=== PATIENT | female | born 1980 | race Caucasian/White ===

== ENCOUNTER 2020-05-02 08:00 | Outpatient (CLI) | payer MEDICAID ==
[2020-05-02 16:23] LABS: MUDS CUTOFF CONCENTRATIONS CUTOFF CONC BELOW:
[2020-05-02 16:59] LABS: BILIRUBIN,URINE NEGATIVE (NEGATIVE); GLUCOSE, URINE (UA) NEGATIVE (NEGATIVE); KETONES,URINE (UA) NEGATIVE (NEGATIVE); LEUKOCYTE ESTERASE, URINE NEGATIVE (NEGATIVE); NITRITE,URINE NEGATIVE (NEGATIVE); OCCULT BLOOD,URINE NEGATIVE (NEGATIVE); PROTEIN,URINE NEGATIVE (NEGATIVE); UROBILINOGEN,URINE 0.2 (NORMAL) E.U./dL (NORMAL)
[2020-05-02 17:21] LABS: BACTERIA,URINE None Seen /HPF (None Seen); CLARITY,URINE CLEAR (CLEAR); RBC,URINE None Seen /HPF (0-5); SQUAMOUS EPITHELIAL CELL,UR NONE SEEN (<= Few)
[2020-05-02 17:36] LABS: AMPHETAMINE SCREEN,URINE NEGATIVE (NEGATIVE); BENZODIAZEPINES SCREEN, URINE NEGATIVE (NEGATIVE); COCAINE SCREEN URINE NEGATIVE (NEGATIVE); METHADONE SCREEN, URINE NEGATIVE (NEGATIVE); METHAMPHETAMINES SCREEN, URINE NEGATIVE (NEGATIVE); OPIATE SCREEN, URINE NEGATIVE (NEGATIVE); OXYCODONE SCREEN, URINE NEGATIVE (NEGATIVE); PROPOXYPHENE SCREEN, URINE NEGATIVE (NEGATIVE); TRICYCLIC ANTIDEPRESSANT,URINE NEGATIVE (NEGATIVE)
== END 2020-05-02 23:59 | disposition home or self-care (01) ==
LOC: LAB.R 08:00
PROVIDERS: ATTEND Nurse Practitioner Obstetrics & Gynecology
DX: Z32.01 Encounter for pregnancy test, result positive (principal)
CPT/HCPCS: 80306; 81001; 87086

== ENCOUNTER 2020-05-18 14:38 | Outpatient (CLI) | payer MEDICAID ==
--- NOTE | 2020-05-18 16:22 | Ultrasound Report ---
PROCEDURE: OB First Trimester w/TV INDICATIONS: VAGINAL BLEEDING, 1ST TRIMESTER` TECHNIQUE: Both transabdominal and transvaginal scanning. COMPARISON: None. FINDINGS: The clinical history indicates positive test approximately one month ago. Vaginal bleeding since yesterday. Prior history of spontaneous . Currently the scanning shows a small 5 mm irr egular empty presumed gestational sac, with no evidence of intrauterine gestation. A corpus luteum cy st is not seen at the ovaries. IMPRESSION: Presumed spontaneous , correlation with quantitative beta hCG may be warranted. Currently a v iable intrauterine gestation is not found. Reviewed by: Usama Biswas MD on 05/18/2020 4:21 PM PDT Approved by: Usama Biswas MD on 05/18/2020 4:21 PM PDT Station ID: [id number]
== END 2020-05-18 14:39 | disposition home or self-care (01) ==
LOC: DI 14:38
PROVIDERS: ATTEND Nurse Practitioner Obstetrics & Gynecology
DX: O46.91 Antepartum hemorrhage, unspecified, first trimester (principal); Z32.01 Encounter for pregnancy test, result positive
CPT/HCPCS: 76801; 76817

== ENCOUNTER 2020-08-18 16:05 | Outpatient (CLI) | payer OTHER ==
--- NOTE | 2020-08-18 16:42 | XRAY Report ---
PROCEDURE: Chest 2 View X-Ray INDICATIONS: SHORTNESS OF BREATH TECHNIQUE: 2 view(s) of the chest. COMPARISON: None. FINDINGS: Surgical changes and devices: None. Lungs and pleura: No pleural effusions or pneumothorax. Lungs are clear. Mediastinum: Mediastinal contours are normal. Heart size is normal. Bones and chest wall: No suspicious bony abnormalities. Soft tissues appear unremarkable. IMPRESSION: Normal chest plain films. Reviewed by: Dov Dutta MD on 08/18/2020 3:41 PM [facility] Approved by: Dov Dutta MD on 08/18/2020 3:41 PM [facility] Station ID: [id number]
== END 2020-08-18 23:59 | disposition home or self-care (01) ==
LOC: DI.S 16:05
PROVIDERS: ATTEND Physician Assistant Medical
DX: R06.02 Shortness of breath (principal)

== ENCOUNTER 2021-05-09 15:40 | Outpatient (CLI) | payer OTHER ==
[2021-05-09 16:16] LABS: HCT - HEMATOCRIT 35.6 % (37.0-47.0); MEAN CORPUSCULAR HEMOGLOBIN 33.7 pg (27.0-31.0); MEAN CORPUSCULAR HGB CONC 33.7 g/dL (32.0-36.0); MEAN PLATELET VOLUME 11.3 fL (7.9-10.8); RED BLOOD COUNT 3.56 10^6/uL (4.20-5.40); RED CELL DISTRIBUTION WIDTH 14.1 % (12.0-15.0); WHITE BLOOD COUNT 9.1 x10^3/uL (4.8-10.8)
[2021-05-09 16:30] LABS: % IRON SATURATION 20 % (20-50); IRON 93 ug/dL (28-170); TOTAL IRON BINDING CAPACITY 461 ug/dL (250-450); TRANSFERRIN 329 mg/dL (192-382)
[2021-05-09 16:43] LABS: THYROID STIMULATING HORMONE 1.82 uIU/mL (0.34-5.60)
[2021-05-09 16:49] LABS: FERRITIN 30.7 ng/mL (11.0-306.8)
== END 2021-05-09 15:41 | disposition home or self-care (01) ==
LOC: LAB 15:40
PROVIDERS: ATTEND Obstetrics & Gynecology
DX: O99.019 Anemia complicating pregnancy, unspecified trimester (principal); O99.280 Endocrine, nutritional and metabolic diseases complicating pregnancy, unspecified trimester; O99.891 Other specified diseases and conditions complicating pregnancy; E55.9 Vitamin D deficiency, unspecified; R53.83 Other fatigue
CPT/HCPCS: 36415; 82306; 82728; 83540; 84443; 84466; 85027

== ENCOUNTER 2021-05-16 08:00 | Outpatient (CLI) | payer OTHER | END 2021-05-16 23:59 | disposition home or self-care (01) | LOC: LAB.WC 08:00 | PROVIDERS: ATTEND Obstetrics & Gynecology | DX: O09.90 Supervision of high risk pregnancy, unspecified, unspecified trimester (principal); Z36.85 Encounter for antenatal screening for Streptococcus B | CPT/HCPCS: 87797 ==

== ENCOUNTER 2021-05-22 11:24 | Emergency (ER) | payer OTHER ==
[2021-05-22 12:10] LABS: BASOPHILS % (AUTO) 0.2 %; EOSINOPHILS # (AUTO) 0.1 10^3/uL (0.0-0.7); EOSINOPHILS % (AUTO) 0.7 %; HCT - HEMATOCRIT 36.6 % (37.0-47.0); LYMPHOCYTES # (AUTO) 1.2 10^3/uL (1.5-3.5); LYMPHOCYTES % (AUTO) 12.6 %; MEAN CORPUSCULAR HEMOGLOBIN 33.1 pg (27.0-31.0); MEAN CORPUSCULAR HGB CONC 32.8 g/dL (32.0-36.0); MEAN CORPUSCULAR VOLUME 101.1 fL (81.0-99.0); MEAN PLATELET VOLUME 11.6 fL (7.9-10.8); MONOCYTES # (AUTO) 0.9 10^3/uL (0.0-1.0); MONOCYTES % (AUTO) 8.9 %; NEUTROPHILS # (AUTO) 7.3 10^3/uL (1.5-6.6); PLT - PLATELET COUNT 167 10^3/uL (130-450); RED BLOOD COUNT 3.62 10^6/uL (4.20-5.40); RED CELL DISTRIBUTION WIDTH 13.8 % (12.0-15.0); WHITE BLOOD COUNT 9.5 x10^3/uL (4.8-10.8)
[2021-05-22 12:27] LABS: ALBUMIN 3.2 g/dL (3.2-5.5); ALBUMIN/GLOBULIN RATIO 1.1 (1.0-2.2); BILIRUBIN,TOTAL 0.5 mg/dL (0.2-1.0); CALCIUM 8.8 mg/dL (8.5-10.3); CREATININE 0.5 mg/dL (0.4-1.0); POTASSIUM 3.9 mmol/L (3.5-5.0); TOTAL PROTEIN 6.2 g/dL (6.7-8.2)
--- NOTE | 2021-05-22 12:51 | PROCEDURE REPORT ---
- HPI Diagnosis/Indication for NST: Other (ED evaluation for chest pain) Vital Signs Temperature 98 F 05/22/21 11:26 Heart Rate 122 H 05/22/21 11:26 Respiratory Rate 16 05/22/21 11:26 Blood Pressure 117/82 H 05/22/21 11:26 O2 Saturation 99 05/22/21 11:26 Temperature 98 F 05/22/21 11:26 Heart Rate 88 05/22/21 12:30 Respiratory Rate 18 05/22/21 12:30 Blood Pressure 125/81 H 05/22/21 12:30 O2 Saturation 95 05/22/21 12:30 40-year-old -0-2-1 at 37 weeks 3 days gestation - NST Procedure NST Performed 05/22/2021 NST Read 05/22/2021 Diagnosis 37 weeks gestation Chest pain FHT: 130 beats per minute baseline, moderate variability, accelerations present, no decelerations. [place]: No significant contractions. - Results and Plan Findings/Impression: Reactive NST.
[2021-05-22 14:47] VITALS: BP 112/75
--- NOTE | 2021-05-22 14:49 | ED Physician Documentation ---
History of Present Illness - Stated complaint Stated Complaint: RACING HEART - Chief complaint Chief Complaint: Cardiac - History obtained from History obtained from: Patient - Additonal information Additional information: Patient comes emergency department chief complaint of episodes of racing heart. She states she is 37 weeks , and that the episodes have been happening for the past few weeks, mainly in the morning when she first gets up. Sx subside after a couple of hours. She states that it helps to sit or lay down. She denies syncope or near syncope, but states she has just felt tired. No chest pain or shortness or breath. No lower extremity swelling or pain. No DVT/PE hx. Pt has had an uneventful so far. No vaginal bleeding or d/c. She has been drinking plenty of water, and has not been sick. She is receiving regular care from Dr. Mcadams, who sent pt here after finding her HR to be 130 in the office. Pt states she is not currently feeling as though her heart is racing. Pt has been feeling baby move. No h/o dysrhythmia. No other complaints at this time. Review of Systems Ten Systems: 10 systems reviewed and negative Constitutional: reports: Reviewed and negative Eyes: reports: Reviewed and negative Ears: reports: Reviewed and negative Nose: reports: Reviewed and negative Throat: reports: Reviewed and negative Cardiac: reports: Palpitations Respiratory: reports: Reviewed and negative GI: reports: Reviewed and negative : reports: Reviewed and negative Skin: reports: Reviewed and negative Musculoskeletal: reports: Reviewed and negative Neurologic: reports: Reviewed and negative Psychiatric: reports: Reviewed and negative Endocrine: reports: Reviewed and negative Immunocompromised: reports: Reviewed and negative PD PAST MEDICAL HISTORY - Present Medications Home Medications: Ambulatory Orders Medication Instructions Recorded Confirmed No Known Home Medications 05/22/21 05/22/21 - Allergies Allergies/Adverse Reactions: Allergies Allergy/AdvReac Type Severity Reaction Status Date / Time No Known Drug Allergies Allergy Verified 05/22/21 11:42 - Social History Does the pt smoke?: No Smoking Status: Never smoker PD ED PE NORMAL - Vitals Vital signs reviewed: Yes - General General: Alert and oriented X 3, No acute distress, Well developed/nourished - HEENT HEENT: Atraumatic, PERRL, EOMI, Moist mucous membranes - Neck Neck: Supple, no meningeal sign - Cardiac Cardiac: RRR, No murmur, Strong equal pulses - Respiratory Respiratory: No respiratory distress, Clear bilaterally - Abdomen Abdomen: Soft, Non tender, Other (Gravid, consistent with late .) - Derm Derm: Normal color, Warm and dry, No rash - Extremities Extremities: No deformity, No edema, No calf tenderness / cord - Neuro Neuro: Alert and oriented X 3, land title examiner 2-12 intact, Normal speech, Other (Grossly intact) - Psych Psych: Normal mood, Normal affect Results - Vitals Vitals: Oxygen O2 Source Room air - EKG (time done) 1136 Rate: Rate (enter#) (120) Rhythm: Sinus tachycardia [place]: Normal Intervals: Normal SC QRS: LVH (borderline) Ischemia: Normal ST segments Compare to prior EKG: Old EKG unavailable - Labs Labs: Laboratory Tests 05/22/21 05/22/21 05/22/21 12:01 12:01 12:01 WBC 9.5 RBC 3.62 L Hgb 12.0 Hct 36.6 L MCV 101.1 H MCH 33.1 H MCHC 32.8 RDW 13.8 Plt Count 167 MPV 11.6 H Neut # (Auto) 7.3 H Lymph # (Auto) 1.2 L [place] # (Auto) 0.9 Eos # (Auto) 0.1 Baso # (Auto) 0.0 Absolute Nucleated RBC 0.00 Nucleated RBC % 0.0 Sodium 130 L Potassium 3.9 Chloride 103 Carbon Dioxide 20 L Anion Gap 7.0 BUN 5 L Creatinine 0.5 Estimated GFR (MDRD) 137 Glucose 103 H Calcium 8.8 Total Bilirubin 0.5 AST 16 ALT 12 Alkaline Phosphatase 100 Troponin I High Sens 4.5 Total Protein 6.2 L Albumin 3.2 Globulin 3.0 Albumin/Globulin Ratio 1.1 Lipase 32 PD MEDICAL DECISION MAKING - ED course Complexity details: reviewed results, re-evaluated patient, considered differential, d/w patient ED course: Pt was very well-appearing in the ED, and was in NSR. Her EKG and labs were unremarkable, other than tachycardia at 120 bpm on EKG, which resolved quickly after settling in to the ED. I d/w pt that even if she feels she is drinking enough water, she should sit down rest and have a cup of water when she feels tired and as though her HR is up in the morning. Most likely, she is a little volume contracted in the morning, and hydrating extra at that time would help. The pt's signs and sx are not indicative of a clot, though this has certainly been considered. She has an appt with Dr. Mcadams 1 week from today, and a scheduled in 2 weeks. We have discussed that if the sx don't resolve within the first couple of weeks after giving , she may want to consider seeing her PCP and discussing an event monitor to see what is going on. Departure - Departure Disposition: 01 Home, Self Care Clinical Impression: Palpitations with regular cardiac rhythm Condition: Stable Instructions: ED Palpitations Comments: Your labs all look great, and your heart rate has been regular and normal here in the emergency department. It is not clear exactly why your heart is racing, but given the physical changes during late , it may just be related to this. Please be sure you are drinking a lot of water, preferably at least 10 cups/day. If you feel as though your heart is racing and you feel fatigued, just sit or lay down for a few minutes and drink a glass of water. I do not feel that a cardiology referral is indicated at this point. Your heart rhythm is completely normal and you Do not have any evidence of a primary cardiac disorder. Additionally, there is no evidence of a blood clot at this time. You may follow-up with Dr. Mcadams as planned, and continue your plans for your scheduled on the , as long as Dr. Mcadams still feels this is a good idea. You may also talk to your doctor about wearing an event monitor if you continue to have the episodes of heart racing. If you develop severe chest pain or shortness of breath, or if you faint, please return to the emergency department. You should also return if your heart rate goes up above 120 bpm and will not come down within an hour. Discharge Date/Time: 05/22/21 14:55
== END 2021-05-22 14:55 | disposition home or self-care (01) ==
LOC: ED 11:24
DX: O99.891 Other specified diseases and conditions complicating pregnancy (principal); R00.0 Tachycardia, unspecified; Z3A.37 37 weeks gestation of pregnancy
CPT/HCPCS: 36415; 80053; 83690; 84484; 85025; 93005; 99282; 99284

== ENCOUNTER 2021-05-30 14:58 | Outpatient (CLI) | payer OTHER ==
[2021-06-03 16:52] LABS: BASOPHILS % (AUTO) 0.3 %; EOSINOPHILS # (AUTO) 0.1 10^3/uL (0.0-0.7); EOSINOPHILS % (AUTO) 0.6 %; HCT - HEMATOCRIT 36.4 % (37.0-47.0); HGB - HEMOGLOBIN 12.1 g/dL (12.0-16.0); LYMPHOCYTES # (AUTO) 1.5 10^3/uL (1.5-3.5); LYMPHOCYTES % (AUTO) 17.4 %; MEAN CORPUSCULAR HEMOGLOBIN 33.3 pg (27.0-31.0); MEAN CORPUSCULAR HGB CONC 33.2 g/dL (32.0-36.0); MEAN CORPUSCULAR VOLUME 100.3 fL (81.0-99.0); MEAN PLATELET VOLUME 12.2 fL (7.9-10.8); MONOCYTES # (AUTO) 0.8 10^3/uL (0.0-1.0); MONOCYTES % (AUTO) 8.5 %; NEUTROPHILS # (AUTO) 6.4 10^3/uL (1.5-6.6); NEUTROPHILS % (AUTO) 72.7 %; PLT - PLATELET COUNT 174 10^3/uL (130-450); RED BLOOD COUNT 3.63 10^6/uL (4.20-5.40); RED CELL DISTRIBUTION WIDTH 13.7 % (12.0-15.0); WHITE BLOOD COUNT 8.8 x10^3/uL (4.8-10.8)
== END 2021-05-30 14:59 | disposition home or self-care (01) ==
LOC: LAB 14:58
PROVIDERS: ATTEND Obstetrics & Gynecology
DX: Z01.812 Encounter for preprocedural laboratory examination (principal); O34.211 Maternal care for low transverse scar from previous cesarean delivery; Z20.822 Contact with and (suspected) exposure to COVID-19
CPT/HCPCS: 36415; 85025; 86850; 86900; 86901

== ENCOUNTER 2021-06-03 15:01 | Outpatient (CLI) | payer OTHER | END 2021-06-03 16:00 | disposition home or self-care (01) | LOC: WFO 15:01 → FBP 15:04 → WFO 16:00 | PROVIDERS: ATTEND Obstetrics & Gynecology | DX: Z53.9 Procedure and treatment not carried out, unspecified reason (principal) ==

== ENCOUNTER 2021-06-03 16:07 | Outpatient (CLI) | payer OTHER | END 2021-06-03 16:08 | disposition home or self-care (01) | LOC: LAB 16:07 | PROVIDERS: ATTEND Obstetrics & Gynecology | DX: Z53.9 Procedure and treatment not carried out, unspecified reason (principal) ==

== ENCOUNTER 2021-06-04 08:30 | Inpatient (IN) | payer OTHER ==
--- NOTE | 2021-06-03 16:05 | ANESTHESIA ---
Pre-Anesthesia VS, & Labs - Diagnosis repeat C/S - Procedure Section Height: 5 ft 7 in - Is Patient ?: Yes Home Medications and Allergies No Known Home Medications 05/22/21 Allergies/Adverse Reactions: Allergies Allergy/AdvReac Type Severity Reaction Status Date / Time No Known Drug Allergies Allergy Verified 05/22/21 11:42 Anes History & Medical History - Anesthetic History Anesthesia Complications: reports: No previous complications - Medical History Cardiovascular: reports: Arrhythmia (was seen in ER recently HR 120's, was felt to be dehydration vs changes in late . EKG showed Sinus Tach. See Dr. Aguilera's note.) Pulmonary: reports: None Gastrointestinal: reports: None Urinary: reports: None Endocrine/Autoimmune: reports: None Blood Disorders: reports: None Skin: reports: None Smoking Status: Never smoker History of Cancer?: No Exam General: Alert, Oriented x3, Cooperative Dental: WNL Mouth Opening: Greater than 4 Fingerbreadths Neck Mobility: Normal Mallampati classification: I Thyromental Distance: greater than 6 cm Respiratory: Lungs clear Cardiovascular: Regular rate Plan Anesthesia Type: Spinal, Transverse Abdominis Plane (TAP) Block (discussed if d esires) Consent for Procedure(s) Verified and Reviewed: No Code Status: Attempt Resuscitation ASA classification: 2-Mild systemic disease Is this case an emergency?: No
[2021-06-06] MEDS ORDERED: LIDOCAINE 2%-EPI 1:100000 20 ML MDV ONE (07:28)
[2021-06-06] MEDS ORDERED: BUPIVACAINE 0.25% PF 30 ML VIAL ONE (07:28)
[2021-06-06] MEDS ORDERED: LACTATED RINGERS 1,000 ML IV SCH ×4 (09:00→19:00)
[2021-06-06] MEDS ORDERED: ONDANSETRON 4 MG/2 ML VIAL IVP PRN ×2 (09:02→09:06)
[2021-06-06] MEDS ORDERED: NALOXONE 0.4 MG/ML VIAL IVP PRN (09:06)
[2021-06-06] MEDS ORDERED: METOCLOPRAMIDE 10 MG/2 ML VIAL IVP PRN (09:06)
[2021-06-06] MEDS ORDERED: ATROPINE ABBOJECT 1 MG/10 ML SYRINGE IVP PRN (09:06)
[2021-06-06] MEDS ORDERED: ePHEDrine 50 MG/ML VIAL IVP PRN (09:06)
[2021-06-06] MEDS ORDERED: HYDROmorphone 0.5 MG/0.5 ML SYRINGE IVP PRN (09:06)
[2021-06-06] MEDS ORDERED: MORPHINE 2 MG/ML CARPUJECT IVP PRN (09:06)
[2021-06-06] MEDS ORDERED: fentaNYL 100 MCG/2 ML VIAL IVP PRN (09:06)
--- NOTE | 2021-06-06 09:06 | ANESTHESIA ---
Pre-Anesthesia VS, & Labs - Diagnosis repeat C/S - Procedure Section Vital Signs: Temp Pulse Resp BP Pulse Ox 106 H 17 112/80 100 06/06/21 08:10 06/06/21 08:10 06/06/21 08:10 06/06/21 08:10 Height: 5 ft 7 in - NPO >8 hours - Is Patient ?: Yes Home Medications and Allergies Active Medications Cefazolin Sodium 2 gm/ Sodium (Chloride) 100 mls @ 200 mls/hr IV ONCE ONE Stop: 06/06/21 09:59 Lactated Ringer's (Lr) 1,000 mls @ 125 mls/hr IV .Q8H DAYA Ondansetron HCl (Ondansetron 4 Mg/2 Ml Vial) 4 mg IVP Q6HR PRN PRN Reason: Nausea / Vomiting No Known Home Medications 05/22/21 Allergies/Adverse Reactions: Allergies Allergy/AdvReac Type Severity Reaction Status Date / Time No Known Drug Allergies Allergy Verified 05/22/21 11:42 Anes History & Medical History - Medical History Cardiovascular: reports: Arrhythmia Pulmonary: reports: None, Asthma Gastrointestinal: reports: None Urinary: reports: None Endocrine/Autoimmune: reports: None Blood Disorders: reports: None Skin: reports: None Smoking Status: Never smoker History of Cancer?: No - Surgical History Gynecologic: reports: section Exam General: Alert Dental: WNL Mallampati classification: II Thyromental Distance: greater than 6 cm Respiratory: Lungs clear Cardiovascular: Regular rate, Normal S1, Normal S2 Plan Anesthesia Type: Spinal, Transverse Abdominis Plane (TAP) Block Consent for Procedure(s) Verified and Reviewed: Yes Code Status: Attempt Resuscitation ASA classification: 2-Mild systemic disease Is this case an emergency?: No
[2021-06-06] MEDS ORDERED: CITRIC ACID/SODIUM CITRATE 15 ML UDC PO ONE (09:27)
[2021-06-06] MEDS ORDERED: ceFAZolin 2 GM in SODIUM CHLORIDE 0.9% 100ML 100 ML IV ONE (09:30)
--- NOTE | 2021-06-06 09:46 | HISTORY & PHYSICAL EXAMINATION ---
History of Present Illness - History of Present Illness HPI Comment/Other: ID: Patient is a 41 yo who presents today for repeat LTCS apt at 39+4 wga HPI: Patient is a 41 year-old G4, P1 at 35+4 weeks estimated gestational age with history of prior . Transferred from [facility] at 35 wga for management of her and delivery due to history of prior has generally been uncomplicated. FAS originally showed EIF (ES. She is seeing [facility]. Genetic counseling. Follow-up was recommended and was unremarkable. Patient has not yet had a Tdap vaccine and has not yet had Covid vaccine declines influenza. 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 No other concerns. Endorses FM. Denies LOF/VB/CTX. PNC: LMP: 09/02/2020 GLORIA by LMP:06/09/2021 Initial U/S: NONE DOCUMENTED (REQUESTED FROM [facility]) FINAL GLORIA: O pos/Rubella immune VZV: NOT DOCUMENTED Genetic testing: [place] negative (male fetus) FAS: Posterior placenta, no previa. TOMMY WNL. 3VC. Size c/w dating (EFW 62%). Echogenic intracardiac focus in the left ventricle. Left choroid plexus is heterogenous, likely small choroid plexus cysts. Suboptimal v isualization of 4 chamber heart, cardiac outflow tracts and ductal arch. 02/13 F/U Genetic counseling w/ultrasound in house: "Left ventricular EIF visualized. Reported left choroid plexus cyst NOT visualized." Low lying placenta is 1cm from the internal os; follow-up ultrasound in 4w is suggested. Follow-up? Glucola: 77 Influenza: declines TDAP: Declines Covid vaccine: Declined GBS @36w: collected 05/15 at 36w3d POSITIVE HSV: endorses. Rx for valacyclovir submitted. Breast pump Rx- 05/09 MOD: Scheduled repeat section 06/04/2021 pp contraception: pap: 12/2017 self reported Past Medical History: Asthma Anxiety Disorder MVP Heart Murmur Past Surgical History: section 2017 FH: Asthma for Father - Entered On: 05/02/2020 Stroke/CVA for Maternal Grandmother - Entered On: 05/02/2020 Family HistoryOther Cancer for Maternal Grandfather - Entered On: 05/02/2020 Family History of Other Medical Problems for Paternal Grandmother, [place] in her 70s - Entered On: 05/02/2020 SOC HX: Denies GARY ROS: As per HPI, otherwise remaining systems are negative. PE: VS: 98.2 106 112/80 17 100 GEN: NAD HEENT: NCAT CV: RR RESP: nl effort ABD: gravid, S&NT/ND EXT: WWP EFM 135 mod apolinar 15x15 accels no decels TOCO Quiet A/P: 41 yo at 39+4 wga here for repeat CS FWB: well grown, GBS positive, vertex at 36 wga -Cat I tracing Preop: Reviewed risks/benefits/alternatives to and BTL Risks include, but are not limited to, bleeding, infection, damage to neatby tissue and organs. On average, EBL of up to 1 liter is considered within normal limits for CS. Risks of blood transfusion include infection Risk of HIV 1/2million nationwide Risk of Hepatitis 1/1 million Risks of transfusion reaction Infection risk moderate given clean/contaminated nature of procedure and IV antibiotics will be given. Damage to nearby tissue and organs including bladder, bowel, ureters, blood vessels, nerves, and fetus Damage may be noted intra-op and may be delayed until after the procedure is complete Reviewed management of complications and efforts to avoid such outcomes but reviewed that they may occur despite our best efforts Confirmed that sterlization is desired Patient understands that tubal ligation is an irreversible process that will result in future infertility Written informed consent obtained. 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
[2021-06-06 10:01] LABS: BASOPHILS % (AUTO) 0.2 %; EOSINOPHILS % (AUTO) 0.2 %; HCT - HEMATOCRIT 37.9 % (37.0-47.0); HGB - HEMOGLOBIN 12.6 g/dL (12.0-16.0); LYMPHOCYTES # (AUTO) 0.9 10^3/uL (1.5-3.5); MEAN CORPUSCULAR HEMOGLOBIN 33.2 pg (27.0-31.0); MEAN CORPUSCULAR HGB CONC 33.2 g/dL (32.0-36.0); MEAN PLATELET VOLUME 12.5 fL (7.9-10.8); MONOCYTES # (AUTO) 0.6 10^3/uL (0.0-1.0); MONOCYTES % (AUTO) 6.6 %; NEUTROPHILS # (AUTO) 6.9 10^3/uL (1.5-6.6); NEUTROPHILS % (AUTO) 81.6 %; PLT - PLATELET COUNT 168 10^3/uL (130-450); RED BLOOD COUNT 3.79 10^6/uL (4.20-5.40); RED CELL DISTRIBUTION WIDTH 13.8 % (12.0-15.0); WHITE BLOOD COUNT 8.5 x10^3/uL (4.8-10.8)
[2021-06-06] MEDS ORDERED: fentaNYL 100 MCG/2 ML VIAL ONE (13:08)
[2021-06-06] MEDS ORDERED: OXYTOCIN 10 UNIT/ML VIAL ONE (13:09)
[2021-06-06] MEDS ORDERED: ONDANSETRON 4 MG/2 ML VIAL ONE ×2 (13:21→13:45)
[2021-06-06] MEDS ORDERED: SODIUM CHLORIDE 0.9% 10 ML VIAL IVP ONE (14:03)
[2021-06-06] MEDS ORDERED: ROPIVACAINE 0.5% PF 20 ML AMPULE ONE (14:03)
[2021-06-06] MEDS ORDERED: LACTATED RINGERS 1,000 ML IV ONE ×2 (15:19→15:56)
[2021-06-06] MEDS ORDERED: KETOROLAC 30 MG/ML VIAL IVP PRN (15:40)
[2021-06-06] MEDS ORDERED: ACETAMINOPHEN 1,000 MG/100 ML 100 ML IV ONE (15:41)
--- NOTE | 2021-06-06 15:43 | ANESTHESIA POST OP EVALUATION ---
Anesthesia Post Eval - Post Anesthesia Eval Vitals: Last Vital Signs Temp 37.5 C 06/06/21 15:20 Pulse 64 06/06/21 15:35 Resp 16 06/06/21 15:35 BP 115/85 H 06/06/21 15:35 Pulse Ox 100 06/06/21 15:35 CV Function Including HR & BP: Stable Pain Control: Satisfactory Nausea & Vomiting: Negative Mental Status: Baseline Respiratory Status: Airway Patent Hydration Status: Satisfactory Anesthesia Complications: None
[2021-06-06] MEDS ORDERED: KETOROLAC 30 MG/ML VIAL ONE (15:44)
[2021-06-06] MEDS ORDERED: OXYTOCIN/SODIUM CHLORIDE 500 ML IV PRN ×2 (17:12→18:26)
[2021-06-06] MEDS ORDERED: SODIUM CHLORIDE FLUSH 0.9% 10 ML SYRINGE IVP PRN ×2 (17:12→18:26)
[2021-06-06] MEDS ORDERED: ONDANSETRON ODT 4 MG TABLET TL PRN (17:12)
[2021-06-06] MEDS ORDERED: SIMETHICONE CHEW 80 MG TABLET PO PRN (17:12)
[2021-06-06] MEDS: oxyCODONE 5 MG TABLET PO PRN ×2 (17:22→21:34)
--- NOTE | 2021-06-06 18:31 | OPERATIVE REPORT ---
Operative Report - General Admit Date: 06/06/21 Planned Procedure: Repeat low transverse Pre-Op Diagnosis: hx of prior . IUP at 39+4 wga Procedure Performed: Repeat low transverse Post Op Diagnosis: Same and delivery of term gestation - Procedure Note Primary Surgeon: Caro Mcadams MD Secondary Surgeon: Dorothy Patterson MD Anesthesia Provider: Moraima Salcedo CRNA and LEONA Biggs Anesthesia Technique: Spinal Pathology: Placenta for routine discard IV Fluids (mL): 1,700 Estimated Blood Loss (mL): 600 Urine Output (mL): 35 Indications: Patient is a 41 yo who presents today for repeat LTCS apt at 39+4 wga Findings: Male in vertex presentation with Apgars of 9/9. Weight pending. Normal ap pearing uterus, fallopian tubes, and ovaries. Small extension down the right aspect of the uterine incision, repaired. Complications: None - Other Other Information/Narrative: Risks benefits and alternatives of the procedure were discussed. Written informed consent was obtained. Patient was taken to the operating room where spinal anesthesia was placed and found to be adequate. She was prepped and draped in the usual sterile fashion in the dorsal supine position with a leftward tilt. Horvath catheter was in place. SCDs were in place and activated. Cefazolin 2 g IV was given as a preoperative antibiotic. Preoperative timeout was performed. A Pfannenstiel incision was made in the skin with a scalpel and carried through the underlying layer of fascia in a combination of sharp and blunt dissection. The fascia was incised in the midline, and the incision was extended laterally with the Mack scissors. The superior aspect of the fascial incision was grasped with the Ariel clamps, elevated, and the underlying rectus muscles were dissected off bluntly and sharply using the Mack scissors. Attention was then turned to the inferior aspect of the incision which in a similar fashion was grasped, tented up with Ariel clamps, and the underlying rectus muscles dissected off bluntly and sharply using Mack scissors. The rectus muscles were then in the midline. The peritoneum was identified, tented up, and entered bluntly. The peritoneal incision was extended superiorly and inferiorly with good visualization of the bladder. The bladder that blade was then inserted. A bladder flap was not created. The lower uterine segment of the uterus was identified, and incised in a transverse fashion with a scalpel. The uterus was entered bluntly. The uterine incision was extended in a craniocaudal fashion by manual stretch. The bladder blade was removed. The was delivered from from vertex position. Baby was wrapped in a warm sterile towel. Delayed cord clamping was performed. After cessation of pulsations, the cord was clamped x2 and cut. The was handed off to the waiting pediatricians. The placenta was removed with manual expression. The uterus was exteriorized and cleared of all clots and debris via manual swipe using Ray-Coby x2. The uterine incision was then repaired in a running locked fashion using 0 Vicryl suture. The incisoin was reinforced with a running imbricating layer again using 0-Vicryl suture. Excellent hemostasis was obtained. The uterus was returned to the abdomen. The gutters were cleared of all clots and debris. The pelvis was irrigated with warm sloppy wet lap sponges x2. The uterine defect was well visualized in normal anatomic position it was noted again to be hemostatic. The peritoneum was then reapproximated with 2-0 Vicryl in a running fashion. The rectus muscles were then reapproximated using interrupted [id number] sutures using 2-0 Chromic. Good hemostasis was noted. The fascia was then closed using 0 Vicryl in a running fashion starting from the left lateral edge to the midline. A second suture was used to close the fascia in a running fashion starting from the right lateral edge and meeting in the midline, agian using 0-Vicryl. The subcutaneous tissue was then irrigated and closed using 2-0 chromic in a running subcutaneous suture. Skin was closed in a running subcuticular suture using 4-0 Monocryl. Steri-Strips were applied to reinforce the incision and dressing was applied. Procedure was well-tolerated and without complication. Sponge lap and needle counts were correct x2. Patient was taken to recovery room in stable condition. Dr. Patterson assisted with retraction, delivery of the , and suturing.
[2021-06-06] MEDS: DOCUSATE SODIUM 100 MG CAPSULE PO SCH (21:33)
[2021-06-06] MEDS: KETOROLAC 30 MG/ML VIAL IVP SCH (21:33)
[2021-06-07] MEDS ORDERED: SODIUM CHLORIDE FLUSH 0.9% 10 ML SYRINGE IVP SCH ×2 (01:00)
[2021-06-07] MEDS: ACETAMINOPHEN 500 MG TABLET PO SCH ×3 (01:21→18:07)
[2021-06-07] MEDS: KETOROLAC 30 MG/ML VIAL IVP SCH ×3 (03:48→09:51)
[2021-06-07 05:59] LABS: BASOPHILS % (AUTO) 0.4 %; EOSINOPHILS # (AUTO) 0.1 10^3/uL (0.0-0.7); EOSINOPHILS % (AUTO) 1.1 %; HCT - HEMATOCRIT 33.2 % (37.0-47.0); HGB - HEMOGLOBIN 11.1 g/dL (12.0-16.0); LYMPHOCYTES # (AUTO) 1.1 10^3/uL (1.5-3.5); LYMPHOCYTES % (AUTO) 14.1 %; MEAN CORPUSCULAR HEMOGLOBIN 33.7 pg (27.0-31.0); MEAN CORPUSCULAR HGB CONC 33.4 g/dL (32.0-36.0); MEAN CORPUSCULAR VOLUME 100.9 fL (81.0-99.0); MEAN PLATELET VOLUME 11.3 fL (7.9-10.8); MONOCYTES # (AUTO) 0.7 10^3/uL (0.0-1.0); MONOCYTES % (AUTO) 8.9 %; NEUTROPHILS % (AUTO) 75.1 %; PLT - PLATELET COUNT 139 10^3/uL (130-450); RED BLOOD COUNT 3.29 10^6/uL (4.20-5.40); RED CELL DISTRIBUTION WIDTH 13.8 % (12.0-15.0)
[2021-06-07] MEDS ORDERED: SERTRALINE 50 MG TABLET PO SCH (09:00)
[2021-06-07] MEDS: DOCUSATE SODIUM 100 MG CAPSULE PO SCH ×2 (09:51→20:54)
[2021-06-07] MEDS: IBUPROFEN 600 MG TABLET PO SCH ×3 (16:22→22:19)
--- NOTE | 2021-06-07 18:46 | PROVIDER PROGRESS NOTE ---
Subjective - Prog Note Date Prog Note Date: 06/07/21 Prog Note Time: 15:45 - Subjective Subjective: Patient is up and ambulating, tolerating po, and voiding. Pain is well managed with pain medications. BF going well. Having some after pains but managed with po pain meds. Objective - Vital Signs/Intake & Output Reviewed Vital Signs: Yes Vital Signs: Vital Signs x48h Temp Pulse Resp BP Pulse Ox 06/07/21 17:33 97.9 F 77 16 110/70 99 Intake & Output: Intake & Output 06/04/21 06/05/21 06/06/21 06/07/21 23:59 23:59 23:59 23:59 Intake Total 1000 300 Output Total 1175 1700 Balance -175 -1400 - Objective General Appearance: positive: No acute distress Neck: positive: Nml inspection Respiratory: positive: Chest non-tender, Breath sounds nml Cardiovascular: positive: Regular rate & rhythm Abdomen: positive: Non-tender, Other (FF below umbi. Dressing CDI. S&NT/ND) Skin: positive: Color nml Extremities: positive: Non-tender, No pedal edema Neurologic/Psychiatric: positive: Oriented x3 - Lab Results Fish Bones: 06/07/21 05:53 Other Labs: Lab Results x24hrs 06/07/21 Range/Units 05:53 WBC 8.0 (4.8-10.8) x10^3/uL RBC 3.29 L (4.20-5.40) 10^6/uL Hgb 11.1 L (12.0-16.0) g/dL Hct 33.2 L (37.0-47.0) % MCV 100.9 H (81.0-99.0) fL MCH 33.7 H (27.0-31.0) pg MCHC 33.4 (32.0-36.0) g/dL RDW 13.8 (12.0-15.0) % Plt Count 139 (130-450) 10^3/uL MPV 11.3 H (7.9-10.8) fL Neut # (Auto) 6.0 (1.5-6.6) 10^3/uL Lymph # (Auto) 1.1 L (1.5-3.5) 10^3/uL [place] # (Auto) 0.7 (0.0-1.0) 10^3/uL Eos # (Auto) 0.1 (0.0-0.7) 10^3/uL Baso # (Auto) 0.0 (0.0-0.1) 10^3/uL Absolute Nucleated RBC 0.00 x10^3/uL Nucleated RBC % 0.0 /100WBC Assessment/Plan - Problem List (1) delivery delivered Impression: POD#1: S/p rLTCS Doing well Routine post op care Encourage ambulation Transition to po pain meds Anticipate DC home in am Rh positive
[2021-06-08] MEDS ORDERED: SERTRALINE 50 MG TABLET PO SCH (00:30)
[2021-06-08] MEDS: ACETAMINOPHEN 500 MG TABLET PO SCH ×2 (02:03→11:46)
[2021-06-08] MEDS: IBUPROFEN 600 MG TABLET PO SCH ×2 (04:32→11:43)
--- NOTE | 2021-06-08 11:23 | Discharge Plan ---
Discharge Plan Problem Reviewed?: Yes Disposition: Home, Self Care Condition: Good Prescriptions: Acetaminophen [Acetaminophen Extra Strength] 1,000 mg PO Q8H PRN #60 tablet PRN Reason: Pain Docusate Sodium 100Mg Capsule [Colace 100Mg Capsule] 100 - 200 mg PO BID PRN #60 cap PRN Reason: Constipation Ibuprofen [Motrin] 600 mg PO Q6H PRN #60 tab PRN Reason: Pain oxyCODONE [Roxicodone] 2.5 - 5 mg PO Q4H PRN #24 tablet PRN Reason: Severe Pain Diet: Regular Activity Restrictions: Additional Comments (see below) Shower Restrictions: Yes (see below) Driving Restrictions: Yes (No driving while on narcotics) Additional Instructions or Follow Up instructions: Nothing in the vagina for 6 weeks: No intercourse, tampons, douching Call for: -Fever greater than 100.5 -Pain that does not improve with pain medication -Heavy bleeding in which you are soaking a pad an hour for 2 hours in a row -Incision becomes hot, hard, red, starts to open, or leaks foul smelling fluid -Pain or swelling in one leg and not the other +/- shortness of breath or chest pain No lifting more than 10# for 4 weeks [address] while on narcotics Ok to shower. Let water run over the incision. Do not soap, scrub, or apply lotion. Pat dry with a clean towel or hetal a fine hairer. The surgical stickers will start to peel off and you can remove them when they do. Otherwise, the provider will remove them at your one week follow-up appointment. OK to use an unscented sanitary napkin or clean washcloth to keep the incision dry if the belly folds over the incision. Ibuprofen 600 mg by mouth every 6 hours as needed for pain Acetaminophen 500-1000 mg by mouth every 8 hours as needed for pain Docusate 100-200 mg by mouth twice a day as needed for constipation Oxycodone 2.5-5 mg by mouth every 4 hours as needed for pain No Smoking: If you smoke, Please STOP! Call for help. Follow-up with: Rosy Mcadams MD [Provider Admit Priv/Credential] -
[2021-06-08] MEDS: DOCUSATE SODIUM 100 MG CAPSULE PO SCH (11:46)
--- NOTE | 2021-06-08 12:02 | DISCHARGE SUMMARY ---
"Discharge Summary Admit Date: 06/06/21 Discharge Date: 06/08/21 Discharging Provider: Pema Condition at Discharge: Good Discharge Disposition: 01 Home, Self Care - DIAGNOSES Admission Diagnoses: IUP at 39+3 wga Hx of prior c-secition Discharge Diagnoses with Status of Each Condition: Same and delivery of term gestation - HPI History of Present Illness: Patient is a 41 year-old G4, P1 admitted at 39+4 weeks estimated gestational age with history of prior . Transferred from [facility] at 35 wga for management of her and delivery due to history of prior has generally been uncomplicated. FAS originally showed EIF She is seeing [facility] for genetic counseling. Follow-up was recommended and was unremarkable. Patient has not yet had a Tdap vaccine and has not yet had Covid vaccine declines influenza. 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 The was uncomplicated and well tolerated. She delivered a viable male weighing 3230g with Apgars of 9/9 from vertex presentation. Post-operative course was uncomplicated. By POD#2, mother and baby were meeting goals for discharge. Routine discharge instructions were given. Patient is Rh positive and Rubella immune. LABOR PROVIDER: MARGIE DELIVERING PROVIDER: Pema Apgars 9/9 BW 3230g - ALLERGIES Allergies/Adverse Reactions: Allergies Allergy/AdvReac Type Severity Reaction Status Date / Time No Known Drug Allergies Allergy Verified 05/22/21 11:42 - MEDICATIONS Home Medications: Ambulatory Orders Medication Instructions Recorded Confirmed Acetaminophen [Acetaminophen Extra 1,000 mg PO Q8H PRN #60 tablet 06/07/21 Strength] Docusate Sodium 100Mg Capsule 100 - 200 mg PO BID PRN #60 cap 06/07/21 [Colace 100Mg Capsule] Ibuprofen [Motrin] 600 mg PO Q6H PRN #60 tab 06/07/21 oxyCODONE [Roxicodone] 2.5 - 5 mg PO Q4H PRN #24 tablet 06/07/21 - PHYSICAL EXAM AT DISCHARGE General Appearance: positive: No acute distress Neck: positive: Nml inspection Respiratory: positive: No respiratory distress, Breath sounds nml Cardiovascular: positive: Regular rate & rhythm Peripheral Pulses: positive: 2+ Abdomen: positive: Non-tender, Other (S&NT/ND. FF below umbi. Incision with steris with ss staining, otherwise CDI) Skin: positive: Color nml Extremities: positive: Non-tender, No pedal edema Neurologic/Psychiatric: positive: Oriented x3 - LABS Result Diagrams: 06/07/21 05:53 - FOLLOW UP Follow Up: 1 week with Pema - TIME SPENT Time Spent in Discharge (Minutes): 30"
[2021-06-08 16:13] VITALS: BP 138/78
== END 2021-06-08 15:30 | disposition home or self-care (01) | DRG 787 ==
LOC: FBP 06-06 07:57
PROVIDERS: ADMIT Obstetrics & Gynecology; ATTEND Obstetrics & Gynecology
PROC: 10D00Z1 Extraction of Products of Conception, Low, Open Approach (ICD-10-PCS; principal; 2021-06-06 07:30)
DX: O34.211 Maternal care for low transverse scar from previous cesarean delivery (principal); O98.32 Other infections with a predominantly sexual mode of transmission complicating childbirth; O69.81X0 Labor and delivery complicated by cord around neck, without compression, not applicable or unspecified; A60.09 Herpesviral infection of other urogenital tract; Z3A.39 39 weeks gestation of pregnancy; Z37.0 Single live birth; Z79.899 Other long term (current) drug therapy
CPT/HCPCS: 36415; 85025; 86850; 86900; 86901; A9270; J0131; J7120

== ENCOUNTER 2021-11-12 08:00 | Outpatient (CLI) | payer OTHER | END 2021-11-12 08:01 | disposition home or self-care (01) | LOC: LAB.WC 08:00 | PROVIDERS: ATTEND Obstetrics & Gynecology | DX: R58 Hemorrhage, not elsewhere classified (principal) | CPT/HCPCS: 87070; 87205 ==

== ENCOUNTER 2022-07-25 08:00 | Outpatient (CLI) | payer OTHER ==
[2022-07-25 16:36] LABS: BILIRUBIN,URINE NEGATIVE (NEGATIVE); GLUCOSE, URINE (UA) NEGATIVE (NEGATIVE); KETONES,URINE (UA) NEGATIVE (NEGATIVE); LEUKOCYTE ESTERASE, URINE NEGATIVE (NEGATIVE); NITRITE,URINE NEGATIVE (NEGATIVE); OCCULT BLOOD,URINE SMALL (NEGATIVE); PROTEIN,URINE NEGATIVE (NEGATIVE); UROBILINOGEN,URINE 0.2 (NORMAL) E.U./dL (NORMAL)
[2022-07-25 16:40] LABS: CLARITY,URINE CLEAR (CLEAR)
[2022-07-25 16:55] LABS: BACTERIA,URINE Rare /HPF (None Seen); RBC,URINE 0-5 /HPF (0-5); SQUAMOUS EPITHELIAL CELL,UR FEW Squamous (<= Few); WBC,URINE 0-3 /HPF (0-5)
[2022-07-25 22:43] LABS: BACTERIAL VAGINOSIS DNA NEGATIVE (NEGATIVE); CANDIDA GLABRATA DNA NEGATIVE (NEGATIVE); CANDIDA GROUP DNA NEGATIVE (NEGATIVE); CANDIDA KRUSEI DNA NEGATIVE (NEGATIVE); TRICHOMONAS VAGINALIS DNA NEGATIVE (NEGATIVE)
== END 2022-07-25 23:59 | disposition home or self-care (01) ==
LOC: LAB 08:00
PROVIDERS: ATTEND Nurse Practitioner
DX: R30.0 Dysuria (principal); R10.2 Pelvic and perineal pain
CPT/HCPCS: 81001; 81514; 87086

== ENCOUNTER 2022-07-25 15:13 | Outpatient (CLI) | payer OTHER ==
[2022-07-25 15:51] LABS: THYROID STIMULATING HORMONE 1.47 uIU/mL (0.34-5.60)
[2022-07-25 15:53] LABS: FREE T4 (FREE THYROXINE) 0.86 ng/dL (0.58-1.64)
[2022-07-25 15:57] LABS: FERRITIN 88.3 ng/mL (11.0-306.8)
== END 2022-07-25 15:14 | disposition home or self-care (01) ==
LOC: LAB 15:13
PROVIDERS: ATTEND Nurse Practitioner
DX: R10.2 Pelvic and perineal pain (principal); R53.83 Other fatigue
CPT/HCPCS: 36415; 82728; 84439; 84443

== ENCOUNTER 2024-05-06 10:06 | Inpatient (IN) ==
--- NOTE | 2024-05-06 11:35 | ED Physician Documentation ---
History of Present Illness Stated complaint Stated Complaint: RT FOOT BITE Chief complaint Chief Complaint: Ext Problem Additonal information Additional information: 43-year-old female with history of asthma, mitral valve prolapse with heart murmur and staph infection in her line from 2021 presents emergency department for worsening right foot infection. Patient says originally she noticed what she thought was either a spider bite or bug bite 2 nights ago around 1 AM it awoke her from sleep and she then went to urgent care the following morning because the swelling had gotten significantly worse she started on Keflex yesterday from walk-in clinic she is taken a total of 3 doses but feels now that she is getting significantly worse there is streaking going up her right leg significant swelling, erythema and has been having fevers up to 101 F at home. She has rigors on a walk into the room says that she has bodyaches and is feeling generalized malaise. Meds/Allgy Home Medications Ambulatory Orders Medication Instructions Recorded Confirmed oxycodone 5 mg tablet 2.5 - 5 mg (0.5 - 1 x 5 mg) PO Q4H 06/07/21 05/06/24 PRN Severe Pain #24 tabs acetaminophen 500 mg tablet 1,000 mg PO PRN PRN Pain 05/06/24 05/06/24 (Acetaminophen Extra Strength) albuterol sulfate 90 mcg/actuation 2 puff inhalation PRN 05/06/24 05/06/24 aerosol inhaler ibuprofen 600 mg tablet 600 mg PO PRN PRN Pain 05/06/24 05/06/24 Allergies Allergies Allergy/AdvReac Type Severity Reaction Status Date / Time No Known Drug Allergies Allergy Verified 05/06/24 10:13 [facility] Medical History Medical History (Updated 05/06/24 @ 12:26 by Vinicio Boateng DNP) delivery delivered Asthma Social History Social History Smoking Status: Light tobacco smoker If you are a former smoker, when did you quit? (Date/Year): 2004 Number of Years Smoked: 2 How many cigarettes a day do you smoke? (20 cigarettes=1 Pk): 1 Second hand tobacco smoke exposure: No Do you dip or chew tobacco?: No Do you vape?: No Patient requests smoking cessation consult: No Initiate information on smoking cessation: No Relationship: Spouse Level: Independent Do you feel safe in your home environment?: Yes Suffered physical, verbal, emotional, or financial abuse?: No Exam Exam Vital Signs Temperature 36.8 C 05/06/24 16:19 Pulse Rate 91 H 05/06/24 16:19 Respiratory Rate 16 05/06/24 16:19 Blood Pressure 93/58 L 05/06/24 16:19 O2 Saturation 98 05/06/24 16:19 Constitutional normal general appearance, no apparent distress, average body habitus, no limitations and alert Eyes PERRL Extremities RLE: significant swelling with erythema spreading through the entire top of foot with obvious streaking up the top of right leg/ascencio. Warm to the touch, very tender with palpation. blister to heel without eythema or purulent drainage or obvious signs of infection Results Vitals Vitals: Vital Signs - 24 hr 05/06/24 10:13 05/06/24 10:17 05/06/24 12:04 Temperature 36.7 C 37.3 C Temperature Source Oral Pulse Rate 102 H 90 101 H Respiratory Rate 16 17 16 Blood Pressure 104/77 111/68 111/68 O2 Saturation 99 100 99 O2 Source Room air Room air Pain Intensity 8 3 3 05/06/24 12:51 Temperature 38.8 C H Temperature Source Oral Pulse Rate Respiratory Rate Blood Pressure O2 Saturation O2 Source Pain Intensity 3 Oxygen O2 Source Room air Labs Labs: Laboratory Tests 05/06/24 11:53 WBC 17.7 H RBC 4.24 Hgb 13.5 Hct 41.2 MCV 97.2 MCH 31.8 H MCHC 32.8 RDW 13.2 Plt Count 191 MPV 10.6 Neut # (Auto) 16.4 H Lymph # (Auto) 0.5 L [place] # (Auto) 0.6 Eos # (Auto) 0.1 Baso # (Auto) 0.1 Absolute Nucleated RBC 0.00 Nucleated RBC % 0.0 Sodium 133 L Potassium 3.5 Chloride 101 Carbon Dioxide 25 Anion Gap 7.0 BUN 8 Creatinine 0.7 Estimated GFR (MDRD) 92 Glucose 108 H Lactic Acid 1.2 Calcium 9.7 Total Bilirubin 0.5 AST 16 ALT 11 Alkaline Phosphatase 55 Total Protein 7.8 Albumin 4.3 Globulin 3.5 Albumin/Globulin Ratio 1.2 PD Medical Decision Making ED course ED course: 43-year-old female presents emergency department for right foot swelling fevers and chills. Her foot does have obvious erythema with obvious streaking up her right ascencio and pain out of proportion. Labs are complete for further evaluation and she does have a significant white count 17.7 neutrophils elevated at 16.3 mild hyponatremia 133 with no other significant lab abnormalities lactic was found to be within normal limits. Patient does technically meet sepsis criteria 2 sets of blood cultures were collected and vancomycin (Because of her history of staph infection) was ordered and initiated here in the emergency department. I spoke with hospitalist Who has agreed to admit the patient for IV antibiotics. Discharge Plan Discharge Patient Disposition: 66 [facility] DC/Xfer Condition: Stable Clinical Impression: Sepsis, Cellulitis of foot, right, Lymphangitis Interventions: ED Admission Assessment Last Done: 05/06/24 13:36
[2024-05-06 11:59] LABS: BASOPHILS # (AUTO) 0.1 10^3/uL (0.0-0.1); BASOPHILS % (AUTO) 0.3 %; EOSINOPHILS # (AUTO) 0.1 10^3/uL (0.0-0.7); EOSINOPHILS % (AUTO) 0.4 %; HCT - HEMATOCRIT 41.2 % (37.0-47.0); HGB - HEMOGLOBIN 13.5 g/dL (12.0-16.0); LYMPHOCYTES # (AUTO) 0.5 10^3/uL (1.5-3.5); LYMPHOCYTES % (AUTO) 2.8 %; MEAN CORPUSCULAR HEMOGLOBIN 31.8 pg (27.0-31.0); MEAN CORPUSCULAR HGB CONC 32.8 g/dL (32.0-36.0); MEAN CORPUSCULAR VOLUME 97.2 fL (81.0-99.0); MEAN PLATELET VOLUME 10.6 fL (7.9-10.8); MONOCYTES # (AUTO) 0.6 10^3/uL (0.0-1.0); MONOCYTES % (AUTO) 3.5 %; NEUTROPHILS # (AUTO) 16.4 10^3/uL (1.5-6.6); NEUTROPHILS % (AUTO) 92.6 %; PLT - PLATELET COUNT 191 10^3/uL (130-450); RED BLOOD COUNT 4.24 10^6/uL (4.20-5.40); RED CELL DISTRIBUTION WIDTH 13.2 % (12.0-15.0); WHITE BLOOD COUNT 17.7 x10^3/uL (4.8-10.8)
[2024-05-06] MEDS: SODIUM CHLORIDE 0.9% 1,000 ML IV STA (12:01)
[2024-05-06 12:12] LABS: ALBUMIN 4.3 g/dL (3.2-5.5); ALBUMIN/GLOBULIN RATIO 1.2 (1.0-2.2); BILIRUBIN,TOTAL 0.5 mg/dL (0.2-1.0); CALCIUM 9.7 mg/dL (8.5-10.3); CREATININE 0.7 mg/dL (0.6-1.3); POTASSIUM 3.5 mmol/L (3.5-4.5); TOTAL PROTEIN 7.8 g/dL (6.4-8.9)
[2024-05-06] MEDS: VANCOMYCIN INJ 1 GM, VANCOMYCIN INJ 250 MG in SODIUM CHLORIDE 0.9% 500 ML IV ONE (12:16)
--- NOTE | 2024-05-06 13:05 | HISTORY & PHYSICAL EXAMINATION ---
Chief Complaint Chief Complaint Chief Complaint: Right foot pain, History of Present Illness Admitted From Admitted From:: Home History Obtained From History obtained from: From patient History of Present Illness HPI Comment/Other: This is a 43-year-old female with a past medical history of asthma. Who presents to the ER today for right foot pain. Patient says it has been going on for 2 or 3 days. She feels she had an insect or spider bite few days ago. She went to the urgent clinic, patient was started on p.o. antibiotic cephalexin. Now patient appears to be Worsening. Patient States that she has chills, fever and overall not feelinf well. Her right foot is red and swollen. Tender to the touch. Test no obvious insect or spider bite. In the ER patient was given 1 dose of vancomycin and started on IV fluids. Laboratory values indicated leukocytosis 17,000. Patient denies nausea, diarrhea or shortness of breath. Patient denies chest pain Patient is full code Meds/Allgy Home Medications Ambulatory Orders Medication Instructions Recorded Confirmed acetaminophen 500 mg tablet 1,000 mg (2 x 500 mg) PO Q8H PRN 06/07/21 (Acetaminophen Extra Strength) Pain #60 tabs docusate sodium 100 mg capsule 100 - 200 mg (1 - 2 x 100 mg) PO 06/07/21 (Stool Softener) BID PRN Constipation #60 caps ibuprofen 600 mg tablet 600 mg PO Q6H PRN Pain #60 tabs 06/07/21 oxycodone 5 mg tablet 2.5 - 5 mg (0.5 - 1 x 5 mg) PO Q4H 06/07/21 PRN Severe Pain #24 tabs Allergies Allergies Allergy/AdvReac Type Severity Reaction Status Date / Time No Known Drug Allergies Allergy Verified 05/06/24 10:13 [facility] Medical History Medical History (Updated 05/06/24 @ 12:26 by Vinicio Boateng DNP) delivery delivered Asthma Social History Social History Smoking Status: Light tobacco smoker If you are a former smoker, when did you quit? (Date/Year): 2004 Number of Years Smoked: 2 How many cigarettes a day do you smoke? (20 cigarettes=1 Pk): 1 Second hand tobacco smoke exposure: No Do you dip or chew tobacco?: No Do you vape?: No Patient requests smoking cessation consult: No Initiate information on smoking cessation: No Relationship: Level: Independent Do you feel safe in your home environment?: Yes Suffered physical, verbal, emotional, or financial abuse?: No POLST Patient has POLST: Yes POLST Status: Full Code Review of Systems Status of ROS: 10 or more systems reviewed and unremarkable except as noted in history and below Exam Exam Vital Signs Temperature 38.8 C H 05/06/24 12:51 Pulse Rate 110 H 05/06/24 13:33 Respiratory Rate 25 H 05/06/24 13:33 Blood Pressure 97/56 L 05/06/24 13:33 O2 Saturation 98 05/06/24 13:33 Constitutional normal general appearance and no apparent distress HENMT normocephalic and head/scalp atraumatic Eyes PERRL and EOMs intact bilaterally Neck/C-Spine visual inspection normal and trachea midline Lymph no lymphadenopathy noted Chest inspection of chest normal and palpation of chest normal Respiratory breath sounds equal bilaterally and normal respiratory effort Cardiovascular no gallop and no murmur Sinus tach Gastrointestinal abdomen normal to inspection and abdomen soft to palpation Extremities Right Dorsal foot swelling, red, hot to touch. No obvious insect bite Right heel abrasion Neurology electronics processor II-XII intact and no movement abnormality noted Skin skin color normal and no rash Conclusion/Plan Problem List (1) Sepsis: Plan: Sepsis secondary to right foot cellulitis Start IV vancomycin, continue IV hydration. Lactate within normal limits (2) Cellulitis of foot, right: Plan: see above Lab Results Lab results reviewed: Yes 05/06/24 11:53 05/06/24 11:53 EKG Results EKG Interpreted Independently: Yes EKG Comparison: Old EKG unavailable Core Measures Anticipated LOS I expect patient to be DC'd or transferred within 96 hours.: Yes DVT/VTE - Prophylaxis VTE/DVT Prophylaxis med ordered at admit?: Yes
[2024-05-06] MEDS: ACETAMINOPHEN 500 MG TABLET PO STA (13:32)
[2024-05-06] MEDS: LACTATED RINGERS 1,000 ML IV SCH (14:58)
[2024-05-06] MEDS: SODIUM CHLORIDE FLUSH 0.9% 10 ML SYRINGE IVP SCH (16:38)
--- NOTE | 2024-05-06 17:04 | PHARMACY PROGRESS NOTE ---
Best Possible Medication History Admit Date and Time: 05/06/24 [id number] [facility] Statement: As the person ultimately responsible for medication therapy, providers are able to order a medication from an existing home medication list in [facility] via the "Reconcile Routine" prior to Confirmation of that medication by intelligence support officer. Such practice is discouraged except when the physician, in their clinical judgment, deems that a medical need exists for a medication without regard to previous use.
[2024-05-06] MEDS: ACETAMINOPHEN 500 MG TABLET PO PRN (19:35)
[2024-05-06] MEDS: HEPARIN 5,000 UNIT/ML VIAL SUBQ SCH (20:49)
[2024-05-07] MEDS: SODIUM CHLORIDE 0.9% IV SCH ×2 (01:13→16:20)
[2024-05-07] MEDS: VANCOMYCIN IV SCH ×2 (01:13→16:20)
[2024-05-07] MEDS: IBUPROFEN 400 MG TABLET PO PRN (01:24)
[2024-05-07 09:05] LABS: BASOPHILS % (AUTO) 0.3 %; EOSINOPHILS # (AUTO) 0.5 10^3/uL (0.0-0.7); EOSINOPHILS % (AUTO) 4.8 %; HCT - HEMATOCRIT 33.9 % (37.0-47.0); HGB - HEMOGLOBIN 10.9 g/dL (12.0-16.0); LYMPHOCYTES # (AUTO) 0.5 10^3/uL (1.5-3.5); LYMPHOCYTES % (AUTO) 4.7 %; MEAN CORPUSCULAR HEMOGLOBIN 31.5 pg (27.0-31.0); MEAN CORPUSCULAR HGB CONC 32.2 g/dL (32.0-36.0); MEAN PLATELET VOLUME 10.7 fL (7.9-10.8); MONOCYTES # (AUTO) 0.5 10^3/uL (0.0-1.0); NEUTROPHILS # (AUTO) 9.3 10^3/uL (1.5-6.6); NEUTROPHILS % (AUTO) 84.8 %; PLT - PLATELET COUNT 153 10^3/uL (130-450); RED BLOOD COUNT 3.46 10^6/uL (4.20-5.40); RED CELL DISTRIBUTION WIDTH 13.5 % (12.0-15.0); WHITE BLOOD COUNT 10.9 x10^3/uL (4.8-10.8)
--- NOTE | 2024-05-07 09:19 | PROVIDER PROGRESS NOTE ---
Subjective Prog Note Date Prog Note Date: 05/07/24 Prog Note Time: 09:15 Subjective Pt reports feeling: Improved Subjective: This is a 43-year-old female with a past medical history of asthma. Who presents to the ER today for right foot pain. Patient says it has been going on for 2 or 3 days. She feels she had an insect or spider bite few days ago. She went to the urgent clinic, patient was started on p.o. antibiotic cephalexin. Now patient appears to be Worsening. Patient States that she has chills, fever and overall not feelinf well. Her right foot is red and swollen. Tender to the touch. Test no obvious insect or spider bite. In the ER patient was given 1 dose of vancomycin and started on IV fluids. Laboratory values indicated leukocytosis 17,000. Patient denies nausea, diarrhea or shortness of breath. Patient denies chest pain Patient is full code 05/07/2024: Patient doing well, feels that the sweating has gone down and redness has mostly resolved. Current Medications Current Medications Current Medications: Current Medications Generic Name Dose Route Start Last Admin Trade Name Freq PRN Reason Stop Dose Admin Acetaminophen 1,000 mg 05/06/24 14:11 05/06/24 19:35 Acetaminophen 500 Mg Tablet PO 1,000 mg Q8H PRN Administration Pain Heparin Sodium (Porcine) 5,000 unit 05/06/24 21:00 05/07/24 09:03 Heparin 5,000 Unit/Ml Vial SUBQ 5,000 unit BID DAYA Administration Lactated Ringer's 1,000 mls @ 100 mls/hr 05/06/24 13:00 05/07/24 08:33 Lr IV 0 mls/hr .Q10H DAYA Infusion Vancomycin HCl 1,000 mg/ 100 mls @ 100 mls/hr 05/07/24 00:00 05/07/24 02:13 Sodium Chloride IV Infused Q12H DAYA Infusion Ibuprofen 400 mg 05/06/24 12:54 05/07/24 09:05 Ibuprofen 400 Mg Tablet PO 400 mg Q4HR PRN Administration Pain 1 to 4 Sodium Chloride 10 ml 05/06/24 12:54 Sodium Chloride Flush 0.9% 10 Ml Syringe IVP PRN PRN NEEDED PER PROVIDER ORDERS Sodium Chloride 10 ml 05/06/24 17:00 05/07/24 01:21 Sodium Chloride Flush 0.9% 10 Ml Syringe IVP 10 ml 0100,0900,1700 DAYA Administration Objective Vital Signs/Intake & Output Vital Signs: Vital Signs x48h Temp Pulse Resp BP Pulse Ox 05/07/24 08:02 37.2 C 87 18 104/63 99 05/07/24 05:25 83 18 106/66 97 05/07/24 05:00 78 98/54 L 05/07/24 04:57 37.1 C 84 18 87/54 L 98 Intake & Output: Intake & Output 05/05/24 05/06/24 05/07/24 05/08/24 05:59 05:59 05:59 05:59 Intake Total 3620 / 3620 743 / 743 Balance 3620 / 3620 743 / 743 Weight (kg) 77 kg Objective General Appearance: positive No acute distress and Alert Eyes Bilateral: positive Normal inspection and PERRL ENT: positive ENT inspection nml Neck: positive Nml inspection Respiratory: positive Chest non-tender and No respiratory distress Cardiovascular: positive Regular rate & rhythm and No murmur Abdomen: positive Non-tender, No organomegaly and No distention Skin: positive Color nml and No rash Extremities: positive Other (Right Dorsal foot swelling, red, hot to touch. No obvious insect bite Right heel abrasion) Neurologic/Psychiatric: positive Oriented x3 and CN's nml (2-12) Lab Results 05/07/24 09:00 05/06/24 11:53 Other Labs: Lab Results x24hrs 05/07/24 05/06/24 Range/Units 09:00 11:53 WBC 10.9 H 17.7 H (4.8-10.8) x10^3/uL RBC 3.46 L 4.24 (4.20-5.40) 10^6/uL Hgb 10.9 L 13.5 (12.0-16.0) g/dL Hct 33.9 L 41.2 (37.0-47.0) % MCV 98.0 97.2 (81.0-99.0) fL MCH 31.5 H 31.8 H (27.0-31.0) pg MCHC 32.2 32.8 (32.0-36.0) g/dL RDW 13.5 13.2 (12.0-15.0) % Plt Count 153 191 (130-450) 10^3/uL MPV 10.7 10.6 (7.9-10.8) fL Neut # (Auto) 9.3 H 16.4 H (1.5-6.6) 10^3/uL Lymph # (Auto) 0.5 L 0.5 L (1.5-3.5) 10^3/uL [place] # (Auto) 0.5 0.6 (0.0-1.0) 10^3/uL Eos # (Auto) 0.5 0.1 (0.0-0.7) 10^3/uL Baso # (Auto) 0.0 0.1 (0.0-0.1) 10^3/uL Absolute Nucleated RBC 0.00 0.00 x10^3/uL Nucleated RBC % 0.0 0.0 /100WBC Sodium 133 L (135-145) mmol/L Potassium 3.5 (3.5-4.5) mmol/L Chloride 101 (101-111) mmol/L Carbon Dioxide 25 (21-32) mmol/L Anion Gap 7.0 (6-13) BUN 8 (6-20) mg/dL Creatinine 0.7 (0.6-1.3) mg/dL Estimated GFR (MDRD) 92 (>89) Glucose 108 H (74-104) mg/dL Lactic Acid 1.2 (0.5-2.2) mmol/L Calcium 9.7 (8.5-10.3) mg/dL Total Bilirubin 0.5 (0.2-1.0) mg/dL AST 16 (10-42) IU/L ALT 11 (10-60) IU/L Alkaline Phosphatase 55 (42-121) IU/L Total Protein 7.8 (6.4-8.9) g/dL Albumin 4.3 (3.2-5.5) g/dL Globulin 3.5 (2.1-4.2) g/dL Albumin/Globulin Ratio 1.2 (1.0-2.2) Assessment/Plan Problem List (1) Sepsis: (2) Cellulitis of foot, right: Impression: right foot cellulitisImproved Start IV vancomycin, continue IV hydration. Lactate within normal limits (2) Cellulitis of foot, right:
[2024-05-07 09:27] LABS: CALCIUM 8.6 mg/dL (8.5-10.3); CREATININE 0.6 mg/dL (0.6-1.3); POTASSIUM 3.2 mmol/L (3.5-4.5)
[2024-05-07] MEDS ORDERED: VANCOMYCIN 500 MG VIAL ONE (12:46)
[2024-05-07] MEDS: VANCOMYCIN INJ 1 GM in SODIUM CHLORIDE 0.9% 250 ML IV SCH (13:05)
[2024-05-07] MEDS: SODIUM CHLORIDE FLUSH 0.9% 10 ML SYRINGE IVP PRN (14:45)
[2024-05-08 00:36] LABS: VANCOMYCIN,TROUGH 5.6 ug/mL
[2024-05-08 05:30] LABS: BASOPHILS % (AUTO) 0.3 %; EOSINOPHILS # (AUTO) 0.9 10^3/uL (0.0-0.7); EOSINOPHILS % (AUTO) 11.9 %; HCT - HEMATOCRIT 31.4 % (37.0-47.0); HGB - HEMOGLOBIN 10.4 g/dL (12.0-16.0); LYMPHOCYTES # (AUTO) 0.9 10^3/uL (1.5-3.5); LYMPHOCYTES % (AUTO) 12.6 %; MEAN CORPUSCULAR HEMOGLOBIN 32.4 pg (27.0-31.0); MEAN CORPUSCULAR HGB CONC 33.1 g/dL (32.0-36.0); MEAN CORPUSCULAR VOLUME 97.8 fL (81.0-99.0); MEAN PLATELET VOLUME 11.5 fL (7.9-10.8); MONOCYTES # (AUTO) 0.7 10^3/uL (0.0-1.0); MONOCYTES % (AUTO) 9.3 %; NEUTROPHILS # (AUTO) 4.9 10^3/uL (1.5-6.6); NEUTROPHILS % (AUTO) 65.6 %; PLT - PLATELET COUNT 159 10^3/uL (130-450); RED BLOOD COUNT 3.21 10^6/uL (4.20-5.40); RED CELL DISTRIBUTION WIDTH 13.2 % (12.0-15.0); WHITE BLOOD COUNT 7.5 x10^3/uL (4.8-10.8)
[2024-05-08 05:45] LABS: CALCIUM 8.6 mg/dL (8.5-10.3); CREATININE 0.5 mg/dL (0.6-1.3); POTASSIUM 3.7 mmol/L (3.5-4.5)
--- NOTE | 2024-05-08 08:42 | XRAY Report ---
PROCEDURE: XR Ankle 1-2V RT INDICATIONS: swelling, infection? TECHNIQUE: 3 views of the ankle were acquired. COMPARISON: None. FINDINGS: Bones: No definite fractures or dislocations. Ankle mortise is normally aligned. No suspicious bon y lesions. Soft tissues: No tibiotalar joint effusion. Achilles tendon appears normal. Moderate soft tissue s welling of the right foot and ankle. IMPRESSION: Moderate soft tissue swelling of the right foot and ankle without definite underlying fracture/disloc ation. If there is persistent clinical concern for a radiographically occult fracture, recommend repeat imag ing in 10 to 14 days with immobilization as clinically indicated. Reviewed by: Andrew Serna MD on 05/08/2024 8:41 AM PDT Approved by: Andrew Serna MD on 05/08/2024 8:41 AM PDT Station ID: [id number]
--- NOTE | 2024-05-08 11:24 | PROVIDER PROGRESS NOTE ---
Subjective Prog Note Date Prog Note Date: 05/08/24 Prog Note Time: 11:18 Subjective Pt reports feeling: Improved Subjective: This is a 43-year-old female with a past medical history of asthma. Who presents to the ER today for right foot pain. Patient says it has been going on for 2 or 3 days. She feels she had an insect or spider bite few days ago. She went to the urgent clinic, patient was started on p.o. antibiotic cephalexin. Now patient appears to be Worsening. Patient States that she has chills, fever and overall not feelinf well. Her right foot is red and swollen. Tender to the touch. Test no obvious insect or spider bite. In the ER patient was given 1 dose of vancomycin and started on IV fluids. Laboratory values indicated leukocytosis 17,000. Patient denies nausea, diarrhea or shortness of breath. Patient denies chest pain Patient is full code 05/07/2024: Patient doing well, feels that the swelling has gone down and redness has mostly resolved. 05/10/1933: Patient doing well with no complaints. Pointed out that redness has creeped up her Lateral side of the right ankle. Also feels that swelling has decreased. Current Medications Current Medications Current Medications: Current Medications Generic Name Dose Route Start Last Admin Trade Name Freq PRN Reason Stop Dose Admin Acetaminophen 1,000 mg 05/06/24 14:11 05/08/24 00:38 Acetaminophen 500 Mg Tablet PO 1,000 mg Q8H PRN Administration Pain Heparin Sodium (Porcine) 5,000 unit 05/06/24 21:00 05/08/24 08:46 Heparin 5,000 Unit/Ml Vial SUBQ 5,000 unit BID DAYA Administration Vancomycin HCl 1 gm/ Sodium 250 mls @ 167 mls/hr 05/07/24 12:00 05/08/24 02:01 Chloride IV Infused Q12H DAYA Infusion Piperacillin Sod/Tazobactam 100 mls @ 200 mls/hr 05/08/24 12:00 Sod 3.375 gm/ Sodium Chloride IV Q6H DAYA Ibuprofen 400 mg 05/06/24 12:54 05/08/24 07:11 Ibuprofen 400 Mg Tablet PO 400 mg Q4HR PRN Administration Pain 1 to 4 Sodium Chloride 10 ml 05/06/24 12:54 05/07/24 14:45 Sodium Chloride Flush 0.9% 10 Ml Syringe IVP 10 ml PRN PRN Administration NEEDED PER PROVIDER ORDERS Sodium Chloride 10 ml 05/06/24 17:00 05/08/24 00:32 Sodium Chloride Flush 0.9% 10 Ml Syringe IVP 10 ml 0100,0900,1700 DAYA Administration Objective Vital Signs/Intake & Output Vital Signs: Vital Signs x48h Temp Pulse Resp BP Pulse Ox 05/08/24 08:24 36.5 C 89 18 124/76 100 Intake & Output: Intake & Output 05/06/24 05/07/24 05/08/24 05/09/24 05:59 05:59 05:59 05:59 Intake Total 3620 / 3620 3163 / 3163 240 / 240 Balance 3620 / 3620 3163 / 3163 240 / 240 Weight (kg) 77 kg Objective General Appearance: positive No acute distress and Alert Eyes Bilateral: positive Normal inspection and PERRL ENT: positive ENT inspection nml Neck: positive Nml inspection Respiratory: positive Chest non-tender and No respiratory distress Cardiovascular: positive Regular rate & rhythm and No murmur Abdomen: positive Non-tender, No organomegaly and No distention Skin: positive Color nml and No rash Extremities: positive Other (Right Dorsal foot swelling, red, hot to touch. No obvious insect bite Right heel abrasion. Right mass has creeped up on her lateral side of her right ankle.. Overall swelling has decreased) Neurologic/Psychiatric: positive Oriented x3 and CN's nml (2-12) Lab Results 05/08/24 04:46 05/08/24 04:46 Other Labs: Lab Results x24hrs 05/08/24 05/07/24 Range/Units 04:46 23:25 WBC 7.5 (4.8-10.8) x10^3/uL RBC 3.21 L (4.20-5.40) 10^6/uL Hgb 10.4 L (12.0-16.0) g/dL Hct 31.4 L (37.0-47.0) % MCV 97.8 (81.0-99.0) fL MCH 32.4 H (27.0-31.0) pg MCHC 33.1 (32.0-36.0) g/dL RDW 13.2 (12.0-15.0) % Plt Count 159 (130-450) 10^3/uL MPV 11.5 H (7.9-10.8) fL Neut # (Auto) 4.9 (1.5-6.6) 10^3/uL Lymph # (Auto) 0.9 L (1.5-3.5) 10^3/uL [place] # (Auto) 0.7 (0.0-1.0) 10^3/uL Eos # (Auto) 0.9 H (0.0-0.7) 10^3/uL Baso # (Auto) 0.0 (0.0-0.1) 10^3/uL Absolute Nucleated RBC 0.00 x10^3/uL Nucleated RBC % 0.0 /100WBC Sodium 139 (135-145) mmol/L Potassium 3.7 (3.5-4.5) mmol/L Chloride 109 (101-111) mmol/L Carbon Dioxide 24 (21-32) mmol/L Anion Gap 6.0 (6-13) BUN 4 L (6-20) mg/dL Creatinine 0.5 L (0.6-1.3) mg/dL Estimated GFR (MDRD) 135 (>89) Glucose 85 (74-104) mg/dL Calcium 8.6 (8.5-10.3) mg/dL Last Dose Date Not Reportable Last Dose Time Not Reportable Vancomycin Trough 5.6 ug/mL Diagnostic Imaging Diagnostic Imaging Results: positive Final report reviewed Assessment/Plan Problem List (1) Sepsis: (2) Cellulitis of foot, right: Impression: Swelling has somewhat decreased however Redness Now extends over lateral side of her right ankle. This is new. X-ray of her right ankle indicates no acute fracture. Moderate left tissue swelling. Patient's leukocytosis has resolved. Plan: Continue IV vancomycin, add Gram-negative And anaerobic coverage Zosyn.
[2024-05-08] MEDS: PIPERACILLIN/TAZOBACTAM 3.375 GM in SODIUM CHLORIDE 0.9% MINIBAG 100 ML IV ONE (12:29)
[2024-05-08] MEDS: PIPERACILLIN/TAZOBACTAM 3.375 GM in SODIUM CHLORIDE 0.9% MINIBAG 100 ML IV SCH (16:04)
[2024-05-08] MEDS: SODIUM CHLORIDE 0.9% IV SCH (20:12)
[2024-05-08] MEDS: VANCOMYCIN IV SCH (20:12)
[2024-05-09] MEDS: VANCOMYCIN INJ 1,500 MG in SODIUM CHLORIDE 0.9% 250 ML IV SCH (05:34)
[2024-05-09 05:46] LABS: BASOPHILS % (AUTO) 0.4 %; EOSINOPHILS # (AUTO) 0.7 10^3/uL (0.0-0.7); EOSINOPHILS % (AUTO) 14.3 %; HCT - HEMATOCRIT 30.1 % (37.0-47.0); HGB - HEMOGLOBIN 9.9 g/dL (12.0-16.0); LYMPHOCYTES # (AUTO) 1.1 10^3/uL (1.5-3.5); LYMPHOCYTES % (AUTO) 24.8 %; MEAN CORPUSCULAR HEMOGLOBIN 31.8 pg (27.0-31.0); MEAN CORPUSCULAR HGB CONC 32.9 g/dL (32.0-36.0); MEAN CORPUSCULAR VOLUME 96.8 fL (81.0-99.0); MEAN PLATELET VOLUME 10.8 fL (7.9-10.8); MONOCYTES # (AUTO) 0.5 10^3/uL (0.0-1.0); MONOCYTES % (AUTO) 11.4 %; NEUTROPHILS # (AUTO) 2.2 10^3/uL (1.5-6.6); NEUTROPHILS % (AUTO) 48.7 %; PLT - PLATELET COUNT 176 10^3/uL (130-450); RED BLOOD COUNT 3.11 10^6/uL (4.20-5.40); RED CELL DISTRIBUTION WIDTH 13.2 % (12.0-15.0); WHITE BLOOD COUNT 4.6 x10^3/uL (4.8-10.8)
[2024-05-09 06:02] LABS: CALCIUM 8.6 mg/dL (8.5-10.3); CREATININE 0.6 mg/dL (0.6-1.3); POTASSIUM 3.9 mmol/L (3.5-4.5)
--- NOTE | 2024-05-09 10:48 | PROVIDER PROGRESS NOTE ---
Subjective Prog Note Date Prog Note Date: 05/09/24 Prog Note Time: 10:44 Subjective Pt reports feeling: Improved Subjective: This is a 43-year-old female with a past medical history of asthma. Who presents to the ER today for right foot pain. Patient says it has been going on for 2 or 3 days. She feels she had an insect or spider bite few days ago. She went to the urgent clinic, patient was started on p.o. antibiotic cephalexin. Now patient appears to be Worsening. Patient States that she has chills, fever and overall not feelinf well. Her right foot is red and swollen. Tender to the touch. Test no obvious insect or spider bite. In the ER patient was given 1 dose of vancomycin and started on IV fluids. Laboratory values indicated leukocytosis 17,000. Patient denies nausea, diarrhea or shortness of breath. Patient denies chest pain Patient is full code 05/07/2024: Patient doing well, feels that the swelling has gone down and redness has mostly resolved. 05/10/2024: Patient doing well with no complaints. Pointed out that redness has creeped up her Lateral side of the right ankle. Also feels that swelling has decreased. 05/10/2024: Pt feels well, thinks that the swelling and redness has decreased, is able to put weight on foot Current Medications Current Medications Current Medications: Current Medications Generic Name Dose Route Start Last Admin Trade Name Freq PRN Reason Stop Dose Admin Acetaminophen 1,000 mg 05/06/24 14:11 05/08/24 16:06 Acetaminophen 500 Mg Tablet PO 1,000 mg Q8H PRN Administration Pain Heparin Sodium (Porcine) 5,000 unit 05/06/24 21:00 05/09/24 08:32 Heparin 5,000 Unit/Ml Vial SUBQ 5,000 unit BID DAAY Administration Piperacillin Sod/Tazobactam 100 mls @ 25 mls/hr 05/08/24 15:30 05/09/24 07:58 Sod 3.375 gm/ Sodium Chloride IV 25 mls/hr Q8H DAYA Administration Vancomycin HCl 1 gm/ Sodium 250 mls @ 166.667 mls/hr 05/09/24 13:00 Chloride IV Q8H DAYA Ibuprofen 400 mg 05/06/24 12:54 05/09/24 08:33 Ibuprofen 400 Mg Tablet PO 400 mg Q4HR PRN Administration Pain 1 to 4 Sodium Chloride 10 ml 05/06/24 12:54 05/08/24 13:11 Sodium Chloride Flush 0.9% 10 Ml Syringe IVP 10 ml PRN PRN Administration NEEDED PER PROVIDER ORDERS Sodium Chloride 10 ml 05/06/24 17:00 05/09/24 05:35 Sodium Chloride Flush 0.9% 10 Ml Syringe IVP 10 ml 0100,0900,1700 DAYA Administration Objective Vital Signs/Intake & Output Vital Signs: Vital Signs x48h Temp Pulse Resp BP Pulse Ox 05/09/24 08:48 37 C 82 16 121/70 100 Intake & Output: Intake & Output 05/07/24 05/08/24 05/09/24 05/10/24 05:59 05:59 05:59 05:59 Intake Total 3620 / 3620 3163 / 3163 2230 / 2230 610 / 610 Balance 3620 / 3620 3163 / 3163 2230 / 2230 610 / 610 Weight (kg) 77 kg Objective General Appearance: positive No acute distress and Alert Eyes Bilateral: positive Normal inspection and PERRL ENT: positive ENT inspection nml Neck: positive Nml inspection Respiratory: positive Chest non-tender and No respiratory distress Cardiovascular: positive Regular rate & rhythm and No murmur Abdomen: positive Non-tender, No organomegaly and No distention Skin: positive Color nml and No rash Extremities: positive Other (Dercreased redness and Swelling on right foot) Neurologic/Psychiatric: positive Oriented x3 and CN's nml (2-12) Lab Results 05/09/24 05:21 05/09/24 05:21 Other Labs: Lab Results x24hrs 05/09/24 Range/Units 05:21 WBC 4.6 L (4.8-10.8) x10^3/uL RBC 3.11 L (4.20-5.40) 10^6/uL Hgb 9.9 L (12.0-16.0) g/dL Hct 30.1 L (37.0-47.0) % MCV 96.8 (81.0-99.0) fL MCH 31.8 H (27.0-31.0) pg MCHC 32.9 (32.0-36.0) g/dL RDW 13.2 (12.0-15.0) % Plt Count 176 (130-450) 10^3/uL MPV 10.8 (7.9-10.8) fL Neut # (Auto) 2.2 (1.5-6.6) 10^3/uL Lymph # (Auto) 1.1 L (1.5-3.5) 10^3/uL [place] # (Auto) 0.5 (0.0-1.0) 10^3/uL Eos # (Auto) 0.7 (0.0-0.7) 10^3/uL Baso # (Auto) 0.0 (0.0-0.1) 10^3/uL Absolute Nucleated RBC 0.00 x10^3/uL Nucleated RBC % 0.0 /100WBC Sodium 138 (135-145) mmol/L Potassium 3.9 (3.5-4.5) mmol/L Chloride 108 (101-111) mmol/L Carbon Dioxide 25 (21-32) mmol/L Anion Gap 5.0 L (6-13) BUN 4 L (6-20) mg/dL Creatinine 0.6 (0.6-1.3) mg/dL Estimated GFR (MDRD) 110 (>89) Glucose 87 (74-104) mg/dL Calcium 8.6 (8.5-10.3) mg/dL Diagnostic Imaging Diagnostic Imaging Results: positive Final report reviewed Assessment/Plan Problem List (1) Sepsis: (2) Cellulitis of foot, right: Impression: Swelling And redness has decreased.Patient is able to bear weight on right foot. X-ray of her right ankle indicates no acute fracture. Moderate left tissue swelling. Patient's leukocytosis has resolved. Plan: Continue IV vancomycin, IV zosyn. Discharge tomorrow with p.o. antibiotics
[2024-05-09] MEDS: VANCOMYCIN INJ 1 GM in SODIUM CHLORIDE 0.9% 250 ML IV SCH (13:46)
[2024-05-10 06:18] LABS: BASOPHILS % (AUTO) 0.8 %; EOSINOPHILS # (AUTO) 0.5 10^3/uL (0.0-0.7); HCT - HEMATOCRIT 33.9 % (37.0-47.0); HGB - HEMOGLOBIN 10.8 g/dL (12.0-16.0); LYMPHOCYTES # (AUTO) 1.4 10^3/uL (1.5-3.5); LYMPHOCYTES % (AUTO) 29.2 %; MEAN CORPUSCULAR HEMOGLOBIN 31.7 pg (27.0-31.0); MEAN CORPUSCULAR HGB CONC 31.9 g/dL (32.0-36.0); MEAN CORPUSCULAR VOLUME 99.4 fL (81.0-99.0); MEAN PLATELET VOLUME 11.4 fL (7.9-10.8); MONOCYTES # (AUTO) 0.5 10^3/uL (0.0-1.0); NEUTROPHILS # (AUTO) 2.4 10^3/uL (1.5-6.6); NEUTROPHILS % (AUTO) 48.4 %; PLT - PLATELET COUNT 236 10^3/uL (130-450); RED BLOOD COUNT 3.41 10^6/uL (4.20-5.40); RED CELL DISTRIBUTION WIDTH 13.2 % (12.0-15.0); WHITE BLOOD COUNT 4.9 x10^3/uL (4.8-10.8)
[2024-05-10 06:35] LABS: CALCIUM 8.7 mg/dL (8.5-10.3); CREATININE 0.6 mg/dL (0.6-1.3); POTASSIUM 3.9 mmol/L (3.5-4.5)
[2024-05-10 07:50] VITALS: O2SAT 98
[2024-05-10] MEDS: DOXYCYCLINE 100 MG TABLET PO SCH (10:17)
--- NOTE | 2024-05-10 11:06 | Discharge Summary ---
"Discharge Summary Admit Date: 05/06/24 Discharge Date: 05/10/24 Discharging Provider: Dr. Reveles Discharge Facility Name: Home DIAGNOSES Admission Diagnoses: Sepsisresolved with IV antibiotics, fluids. Cellulitis of right footresolving. Will continue oral antibiotic course. Discharge Diagnoses with Status of Each Condition: Cellulitis of right footresolving. Completed 4 days of IV antibiotics, Zosyn and vancomycin with improvement of erythema and swelling. Will transition to amoxicillin and doxycycline for 10 more days. Sepsis secondary to aboveresolved. Leukocytosisresolved. Microcytic, hypochromic anemialikely secondary to iron deficiency anemia. Advised to follow-up outpatient with primary care physician. Asthmastable, continue to follow-up with PCP outpatient. HPI History of Present Illness: Per Dr. Lang: This is a 43-year-old female with a past medical history of asthma. Who presents to the ER today for right foot pain. Patient says it has been going on for 2 or 3 days. She feels she had an insect or spider bite few days ago. She went to the urgent clinic, patient was started on p.o. antibiotic cephalexin. Now patient appears to be Worsening. Patient States that she has chills, fever and overall not feelinf well. Her right foot is red and swollen. Tender to the touch. Test no obvious insect or spider bite. In the ER patient was given 1 dose of vancomycin and started on IV fluids. Laboratory values indicated leukocytosis 17,000. Patient denies nausea, diarrhea or shortness of breath. Patient denies chest pain Patient is full code CONSULTS | PROCEDURES Consultations: Pharmacy for dosing of vancomycin Procedures: Ankle x-ray HOSPITAL COURSE Hospital Course: Patient is a 43-year-old female with a history of asthma who presented initially on 05/06 for right foot swelling. She stated that she was out in her garden in her [facility], and when she came in, she noticed 3 puncture wounds on the dorsum of her right foot, as well as in between the first and 2 digits of her right foot. Over the course of the next few days, she noticed worsening swelling and erythema of the region. She did go to her primary care physician who prescribed cephalexin; however upon taking 1-2 doses, she noticed no improvement, and decided to come into the hospital. When she presented, she was septic with a fever and had leukocytosis. She was started on IV vancomycin and Zosyn. During her stay, her leukocytosis resolved. Subjectively, she felt bettershe had no fevers or chills. Additionally, the erythema that was going up her right leg resolved. She is also erythema on the dorsum of her foot as well as swelling, which is also improving. The plan is to discharge her home with a total 14-day course of antibiotics. She is received 4 days of IV antibiotics. She will do 10 additional days of amoxicillin and doxycycline. She was advised to elevate her leg when possible. She is advised to return if her symptoms worsen, including worsening swelling or redness of her leg, fevers, chills. She was also advised to follow-up with her primary care physician within the next week or so. ALLERGIES Allergies Allergy/AdvReac Type Severity Reaction Status Date / Time No Known Drug Allergies Allergy Verified 05/06/24 10:13 MEDICATIONS Ambulatory Orders Medication Instructions Recorded Confirmed albuterol sulfate 90 mcg/actuation 2 puff inhalation PRN 05/06/24 05/06/24 aerosol inhaler amoxicillin 875 mg tablet 875 mg PO BID #20 tabs 05/10/24 doxycycline hyclate 100 mg tablet 100 mg PO BID #10 tabs 05/10/24 ibuprofen 400 mg tablet 400 mg PO Q4HR PRN Pain 1 to 4 #20 05/10/24 tabs PHYSICAL EXAM AT DISCHARGE General Appearance: positive No acute distress Eyes Bilateral: positive Normal inspection, PERRL and EOMI ENT: positive ENT inspection nml and Pharynx nml Neck: positive Nml inspection, Thyroid nml, No JVD and Trachea midline Respiratory: positive Chest non-tender, No respiratory distress and Breath sounds nml; negative Wheezes, Rales or Rhonchi Cardiovascular: positive Regular rate & rhythm and No murmur Peripheral Pulses: positive 2+ (R foot with 2+ PT and DP pulses ) Abdomen: positive Non-tender, No organomegaly and Nml bowel sounds; negative Guarding, Rebound, Hepatomegaly, Splenomegaly or Mass Back: positive Nml inspection; negative CVA tenderness (R) or CVA tenderness (L) Skin: positive No rash and Warm; negative Color nml (eyrthema of R foot, dorsum; small area of swelling, 2cm x 2 xm on dorsum area of foot), Dry, Cyanosis, Diaphoresis, Pallor, Skin rash or Decubitus Extremities: positive Full ROM and Pedal edema (slight edema in R foot ); negative Non-tender (Tenderness to touch in R foot ) Neurologic/Psychiatric: positive Oriented x3 LABS 05/10/24 05:20 05/10/24 05:20 DIAGNOSTIC IMAGING Diagnostic Imaging Results: Final report reviewed Diagnostic Imaging Results Comments: Ankle x-ray shows moderate soft tissue swelling right foot and ankle without definite underlying fracture/dislocation. SEPSIS Current Stage of Sepsis: Resolved Sepsis Criteria: Recorded Heart Rate greater than 90 bpm and WBC count greater than 12,000 or less than 4000 QUALITY (Female Hip Fx Only) Was patient sent home on osteoporosis medication?: No FOLLOW UP Follow Up: Advised to follow-up with primary care physician TIME SPENT Time Spent in Discharge (Minutes): 30 Discharge Plan Discharge Patient Disposition: Home, Self Care Condition: Stable Medically Cleared Date:: 05/10/24 Prescriptions: New ibuprofen 400 mg Tablet 400 mg PO Q4HR PRN (Reason: Pain 1 to 4) Qty: 20 0RF doxycycline hyclate 100 mg Tablet 100 mg PO BID Qty: 10 0RF amoxicillin 875 mg tablet 875 mg PO BID Qty: 20 0RF Continued albuterol sulfate 90 mcg/actuation HFA aerosol inhaler 2 puff INHALATION PRN Discontinued oxycodone 5 MG tablet 2.5 - 5 mg PO Q4H PRN (Reason: Severe Pain) Qty: 24 0RF acetaminophen [Acetaminophen Extra Strength] 500 MG tablet 1,000 mg PO PRN PRN (Reason: Pain) ibuprofen 600 MG tablet 600 mg PO PRN PRN (Reason: Pain) Activity Restrictions: Activity as Tolerated Activity Restrictions/Additional Instructions: Please elevate right foot as able. Diet: Regular Health Concerns: You came in after you noticed that your right foot had redness and swelling. You noted that it started on the back of your foot, and it spread up your leg. You went to your doctor who gave you an oral antibiotic, but did not seem to help, and the redness spread. When he first got here, an x-ray of your ankle was done which showed soft tissue swelling of the right foot. You also had an increased white blood cell count, which is an indicator of infection. During your stay here, you were started onto IV antibiotics. Your white blood cell count decreased, and your fever broke. We talked about how you will be going home on oral antibiotics. You will be taking doxycycline and amoxicillin twice a day for 10 more days. We talked about how we will be starting probiotics which will help prevent gut issues. You are advised to follow-up with your primary care physician within the next week or so. You were also advised to follow up if you noticed worsening swelling or redness of the area. Plan of Treatment: 1. Take antibiotics as prescribed, maxillae and doxycycline twice a day for 10 more days. 2. Elevate your leg as much as possible. 3. Follow-up with primary care physician. Print Language: Nepali Patient Instructions: Cellulitis Dc Stand Alone Forms: PCP List Follow-up Care: BENJA WALLACE MD [Primary Care Provider] -"
== END 2024-05-10 12:10 | disposition home or self-care (01) | DRG 872 ==
LOC: ED 10:06 → MS2 10:06
PROVIDERS: ADMIT Internal Medicine; ATTEND Internal Medicine
DX: A41.9 Sepsis, unspecified organism; F17.210 Nicotine dependence, cigarettes, uncomplicated; J45.909 Unspecified asthma, uncomplicated; D50.9 Iron deficiency anemia, unspecified; L03.115 Cellulitis of right lower limb